=== PATIENT | female | born 1980 | race Two or more races ===

== ENCOUNTER 2022-06-17 21:10 | Emergency (ER) | payer MEDICAID ==
[~2022-06-17] VITALS: Ht 162.6 cm; Wt 74.8 kg
[2022-06-17] MEDS ORDERED: CYCLOBENZAPRINE5 MG PO (21:56)
[2022-06-17] MEDS ORDERED: KETOROLAC TROMETHAMINE 60 MG/2 ML VIAL IM ONE (22:00)
[2022-06-17] MEDS ORDERED: KETOROLAC TROMETHAMINE 30 MG/ML VIAL ONE (22:12)
== END 2022-06-17 22:29 | disposition home or self-care (01) ==
LOC: FSED 21:26
DX: M54.9 Dorsalgia, unspecified (principal); V43.52XA Car driver injured in collision with other type car in traffic accident, initial encounter; Y92.488 Other paved roadways as the place of occurrence of the external cause
CPT/HCPCS: 99282; J1885

== ENCOUNTER 2023-02-08 12:08 | Emergency (ER) | payer MEDICAID, OTHER ==
[~2023-02-08] VITALS: Ht 162.6 cm; Wt 81.4 kg
[~2023-02-08 12:08] MED LIST: CYCLOBENZAPRINE5 MG PO
[2023-02-08] MEDS ORDERED: FAMOTIDINE 20 MG/2 ML VIAL IV STA (12:56)
[2023-02-08] MEDS ORDERED: ONDANSETRON HCL INJ 2MG/ML 2ML 2 MG/ML VIAL IV STA (12:56)
[2023-02-08] MEDS ORDERED: KETOROLAC TROMETHAMINE 30 MG/ML VIAL IV STA (12:56)
[2023-02-08] MEDS ORDERED: KETOROLAC TROMETHAMINE 30 MG/ML VIAL ONE (13:05)
[2023-02-08] MEDS ORDERED: SODIUM CHLORIDE 0.9% 1000ML 1,000 ML ONE (13:05)
[2023-02-08] MEDS ORDERED: FAMOTIDINE 20 MG/2 ML VIAL IV ONE (13:05)
[2023-02-08] MEDS ORDERED: ONDANSETRON HCL INJ 2MG/ML 2ML 2 MG/ML VIAL ONE (13:05)
[2023-02-08] MEDS ORDERED: SODIUM CHLORIDE 0.9% 1000ML 1,000 ML IV SCH (13:15)
[2023-02-08 15:21] VITALS: O2SAT 100
[2023-02-08] MEDS ORDERED: ONDANSETRON ODT4 MG PO (15:21)
[2023-02-08] MEDS ORDERED: NAPROSYN500 MG PO (15:21)
[2023-02-08] MEDS ORDERED: FERROUS SULFAT325 MG PO (15:25)
[2023-02-08] MEDS ORDERED: COLACE100 M1 PO (15:25)
== END 2023-02-08 15:35 | disposition home or self-care (01) ==
LOC: FSED 12:11
DX: R10.11 Right upper quadrant pain (principal); R10.13 Epigastric pain; K80.20 Calculus of gallbladder without cholecystitis without obstruction; R11.2 Nausea with vomiting, unspecified; D64.9 Anemia, unspecified
CPT/HCPCS: 76705; 80048; 80076; 81003; 81025; 85025; 96374; 96375; 99284; J1885; J2405; J7030

== ENCOUNTER 2024-09-24 22:17 | Emergency (ER) | payer SELFPAY ==
[~2024-09-24] VITALS: Ht 162.6 cm; Wt 81.6 kg
[~2024-09-24 22:17] MED LIST changes: +COLACE100 M1 PO; +FERROUS SULFAT325 MG PO; +NAPROSYN500 MG PO; +ONDANSETRON ODT4 MG PO
[2024-09-24] MEDS ORDERED: BENZONATATE200 MG PO (23:27)
[2024-09-24 23:40] VITALS: PULSE 97; RESP 16; TEMP 100.1; O2SAT 97
== END 2024-09-24 23:40 | disposition home or self-care (01) ==
LOC: FSED 22:56
DX: R50.9 Fever, unspecified (principal); J10.1 Influenza due to other identified influenza virus with other respiratory manifestations; R05.9 Cough, unspecified; Z11.52 Encounter for screening for COVID-19
CPT/HCPCS: 0223U; 83518; 87400; 99283